=== PATIENT | male | born 1990 | race Hispanic/Latino ===

== ENCOUNTER 2019-07-11 18:43 | Emergency (ER) | payer SELFPAY ==
[2019-07-11] MEDS ORDERED: Lidocaine 1% 20 ML MDV ONE (19:22)
[2019-07-11] MEDS ORDERED: Adacel (T-DAP) 0.5 ML SYRINGE ONE (19:48)
[2019-07-11] MEDS ORDERED: Bacitracin 1 PK ONE (20:04)
== END 2019-07-11 20:13 | disposition home or self-care (01) ==
LOC: SCSER 18:43
DX: S61.210A Laceration without foreign body of right index finger without damage to nail, initial encounter (principal); Z23 Encounter for immunization; W26.0XXA Contact with knife, initial encounter
CPT/HCPCS: 12001; 90471; 90715; J2001